=== PATIENT | female | born 1985 | race Asian ===

== ENCOUNTER 2016-08-24 09:36 | Inpatient (IN) | payer OTHER ==
[~2016-08-24] VITALS: Ht 160 cm; Wt 74.3 kg
[2016-08-24] VITALS (13 sets, daily range): BP systolic 101–119; BP diastolic 57–71
[2016-08-24] MEDS ORDERED: PRENATAL TABLE1 EAC3 PO (10:15)
[2016-08-24] MEDS ORDERED: FEOSOL325 MG PO (10:16)
[2016-08-24 12:07] LABS: EOSINOPHIL (%) 0.9 % (0-5); EOSINOPHIL COUNT 0.1 K/uL (0-0.3); HEMATOCRIT 32.5 % (36.0-46.0); IMMATURE GRANULOCYTE (%) 0.7 % (0.0-0.7); IMMATURE GRANULOCYTE COUNT 0.1 K/uL; INSTRUMENT ABS NEUTROPHIL CT 9.4 K/uL; LYMPHOCYTE COUNT 1.4 K/uL (1.0-2.8); MCH 25.4 PG (29.0-34.0); MCHC 31.7 G/DL (30.0-36.0); MEAN PLAT.VOLUME 10.2 uM^3 (9.5-12.4); MONOCYTE (%) 5.5 % (3-12); MONOCYTE COUNT 0.6 K/uL (0-0.8); NEUTROPHIL (%) 80.7 % (45-76); NEUTROPHIL COUNT 9.4 K/uL (1.8-6.4); PLATELET COUNT 287 K/uL (156-360); RBC DIS.WIDTH-CV 14.1 % (11.8-14.6); RBC DIS.WIDTH-SD 40.6 % (39-53); RED BLOOD COUNT 4.06 M/uL (3.80-5.20); WHITE BLOOD COUNT 11.6 K/uL (4.1-10.2)
[2016-08-25 06:30] LABS: EOSINOPHIL (%) 0.4 % (0-5); EOSINOPHIL COUNT 0.1 K/uL (0-0.3); HEMATOCRIT 29.4 % (36.0-46.0); IMMATURE GRANULOCYTE (%) 0.4 % (0.0-0.7); IMMATURE GRANULOCYTE COUNT 0.1 K/uL; INSTRUMENT ABS NEUTROPHIL CT 13.8 K/uL; LYMPHOCYTE COUNT 1.9 K/uL (1.0-2.8); MCH 25.5 PG (29.0-34.0); MCHC 32.3 G/DL (30.0-36.0); MCV 78.8 FL (83-99); MEAN PLAT.VOLUME 10.3 uM^3 (9.5-12.4); MONOCYTE (%) 5.8 % (3-12); NEUTROPHIL (%) 82.1 % (45-76); NEUTROPHIL COUNT 13.8 K/uL (1.8-6.4); PLATELET COUNT 251 K/uL (156-360); RBC DIS.WIDTH-CV 13.7 % (11.8-14.6); RBC DIS.WIDTH-SD 39.4 % (39-53); RED BLOOD COUNT 3.73 M/uL (3.80-5.20)
[2016-08-25 06:31] LABS: WHITE BLOOD COUNT 16.8 K/uL (4.1-10.2)
[2016-08-25 08:37] VITALS: BP 100/52
[2016-08-25 14:29] VITALS: BP 111/59
[2016-08-25 22:19] VITALS: BP 97/58
[2016-08-26 06:07] VITALS: BP 112/66
[2016-08-26] MEDS ORDERED: IBUPROFEN800 MG PO (11:18)
[2016-08-26 15:47] VITALS: BP 101/56
== END 2016-08-26 17:35 | disposition home or self-care (01) | DRG 775 ==
LOC: LDRP-OP 09:36 → 2WEST 09:37
PROVIDERS: Advanced Practice Midwife
DX: O70.1 Second degree perineal laceration during delivery (principal); O99.02 Anemia complicating childbirth; D62 Acute posthemorrhagic anemia; Z37.0 Single live birth; Z3A.39 39 weeks gestation of pregnancy
CPT/HCPCS: 85025; 87070; 87075; 87076; 87185; 87205; C1755; J7120